=== PATIENT | female | born 2000 | race Caucasian/White ===

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

== ENCOUNTER 2021-05-18 17:11 | Observation (INO) ==
[2021-05-18 18:44] LABS: Bacteria,Urine Few per hpf (None-Few); Bilirubin,Urine Negative (Negative); Blood,Urine Negative (Negative); Calcium Oxalate Crystals,Urine Present per hpf; Clarity,Urine Turbid (Clear); Color,Urine Yellow (Yellow); Glucose,Urine (UA) Normal (Normal); Ketones,Urine Negative (Negative); Leukocyte Esterase,Urine Trace (Negative); Mucus,Urine Few per lpf (None-Few); Nitrite,Urine Negative (Negative); PH,Urine 6.5 pH Units (5.0-8.0); Protein,Urine 30 mg/dL (Neg-Trace); Specific Gravity,Urine 1.029 (1.010-1.025); Squamous Epithelial Cell,Urine Moderate per hpf (None-Few); Urobilinogen,Urine Normal (Normal)
== END 2021-05-18 18:53 | disposition home or self-care (01) ==
LOC: 1NENULAB
PROVIDERS: ADMIT Advanced Practice Midwife; ATTEND Advanced Practice Midwife

== ENCOUNTER 2021-05-24 00:15 | Inpatient (IN) ==
[~2021-05-24 00:15] MED LIST changes: +*HR* Nalbuphine 10 MG/ML AMPUL IV PRN; +Famotidine 20 MG/2 ML VIAL IVP PRN; +Lidocaine 1% 20 ML MDV INFILT PRN; +Metoclopramide 10 MG/2 ML VIAL IVP PRN; +Naloxone 0.4 MG/ML INJ IVP PRN; +Ondansetron 4 MG/2 ML VIAL IVP PRN; -Ondansetron ODT 4 MG TAB.RAPDIS SL ONE; +Ringers Solution, Lactated 1,000 ML IVC SCH
[2021-05-24 00:30] LABS: Basophils # 0.1 K/mcL (0.0-0.2); Basophils % 0.3 %; Eosinophils # 0.1 K/mcL (0.0-0.6); Eosinophils % 0.6 %; Hematocrit 39.2 % (35.3-44.9); Hemoglobin 13.5 g/dL (11.5-15.4); Immature Granulocytes % 0.9 % (0-4); Lymphocytes # 2.3 K/mcL (0.6-4.6); Lymphocytes % 14.6 %; Mean Corpuscular HGB Conc 34.4 g/dL (31.6-35.5); Mean Corpuscular Hemoglobin 29.8 pg (28.0-33.3); Mean Corpuscular Volume 86.5 fL (83.0-100.0); Mean Platelet Volume 10.7 fL (9.4-12.4); Monocytes # 0.9 K/mcL (0.0-1.3); Monocytes % 5.7 %; Neutrophils # 12.4 K/mcL (1.6-8.9); Platelet Count 235 K/mcL (140-400); Red Blood Count 4.53 M/mcL (3.82-4.97); Red Cell Distribution Width 13.7 % (11.5-14.5); Segmented Neutrophils % 77.9 %; White Blood Count 15.9 K/mcL (4.3-11.1)
[2021-05-24 00:40] LABS: Amphetamine Screen,Urine Negative ng/mL (Cutoff=1000); Barbiturate Screen,Urine Negative ng/mL (Cutoff=200); Benzodiazepines Screen,Urine Negative ng/mL (Cutoff=200); Cannabinoid Screen,Urine Positive ng/mL (Cutoff = 50); Cocaine Screen,Urine Negative ng/mL (Cutoff= 300); Opiate Screen,Urine Negative ng/mL (Cutoff=300); Phencyclidine Screen,Urine Negative ng/mL (Cutoff=25)
[2021-05-24] MEDS: Oxytocin 20 units/ LR 1000 mL 20 UNIT/1,000 ML BAG IVC SCH ×2 (02:12→17:44)
[2021-05-24] MEDS ORDERED: EPHEDrine 50 MG/ML VIAL IVP PRN (14:58)
[2021-05-24] MEDS ORDERED: Epidural Premix (fent/bupiv) 110 ML EP SCH (15:00)
[2021-05-24 18:40] VITALS: O2SAT 97
[2021-05-24] MEDS ORDERED: Acetaminophen 325 MG TABLET PO PRN (20:00)
[2021-05-24] MEDS ORDERED: Lanolin 7 G OINT...G. TP PRN (20:00)
[2021-05-24] MEDS ORDERED: Benzocaine/Menthol 56 GM AEROSOL SPRAY TP PRN (20:00)
[2021-05-24] MEDS ORDERED: Oxytocin 20 units/ LR 1000 mL 20 UNIT/1,000 ML BAG IVC SCH (20:00)
[2021-05-24] MEDS: Ibuprofen 600 MG TABLET PO PRN (21:43)
[2021-05-25] MEDS: Ibuprofen 600 MG TABLET PO PRN ×2 (04:24→17:52)
[2021-05-25 07:59] VITALS: BP 125/63; PULSE 54; TEMP 98.2
[2021-05-25] MEDS ORDERED: Prenatal Vit/FA 1 EACH TABLET PO SCH (09:00)
== END 2021-05-25 18:25 | disposition home or self-care (01) | DRG 560 ==
LOC: 1NENULAB → 1NENUOBS 18:38
PROVIDERS: ADMIT Registered Nurse; ATTEND Registered Nurse